=== PATIENT | female | born 1975 | race American Indian/Alaskan Native ===

== ENCOUNTER 2022-02-26 05:40 | Emergency (ER) | payer SELFPAY ==
[2022-02-26 05:51] VITALS: BP 114/68
--- NOTE | 2022-02-26 08:08 | XRay Report ---
CHEST 2 VIEWS INDICATION: Chest Pain. COMPARISON: none FINDINGS: Support devices: None. Heart: Within normal limits. Lungs/pleura: No acute air space or interstitial disease. No pneumothorax. Additional findings: None. IMPRESSION: No acute findings. Signer Name: Dudley Vora Jr, MD Signed: 02/26/2022 8:03 AM Workstation Name: [id number]
[2022-02-26 08:28] LABS: Basophils # (Auto) 0.1 K/mm3 (0.0-0.1); Eosinophils # (Auto) 0.1 K/mm3 (0.0-0.4); Eosinophils % (Auto) 1.5 % (0.0-4.3); Hematocrit 27.3 % (30.3-42.9); Hemoglobin 8.3 gm/dl (10.1-14.3); Lymphocytes # (Auto) 1.3 K/mm3 (1.2-5.4); Lymphocytes % (Auto) 17.7 % (13.4-35.0); Mean Corpuscular HGB Conc 30 % (30-34); Monocytes # (Auto) 0.7 K/mm3 (0.0-0.8); Platelet Count 394 K/mm3 (140-440); Red Blood Count 3.97 M/mm3 (3.65-5.03); Red Cell Distribution Width 17.6 % (13.2-15.2)
[2022-02-26 08:32] LABS: Mean Corpuscular Volume 69 fl (79-97)
[2022-02-26 08:40] LABS: INR 0.91 (0.87-1.13)
[2022-02-26 08:41] LABS: Partial Thromboplastin Time 26.4 Sec. (24.2-36.6)
[2022-02-26 09:18] LABS: Alanine Aminotransferase 8 units/L (7-56); Albumin 4.3 g/dL (3.9-5); Blood Urea Nitrogen 7 mg/dL (7-17); Calcium 8.8 mg/dL (8.4-10.2); Hemolysis Index 10
--- NOTE | 2022-02-26 09:22 | Emergency Department Report ---
- General Chief Complaint: Upper Respiratory Infection Stated Complaint: CHEST PAIN/COUGH Time Seen by Provider: 02/26/22 07:37 Source: EMS Mode of arrival: Stretcher Limitations: No Limitations - History of Present Illness Initial Comments: This is a 46-year-old female nontoxic, well nourished in appearance, no acute signs of distress presents to the ED with c/o of productive cough, chest tightness during coughing episodes only, rhinorrhea, nasal congestion x2 days. Patient describes productive cough as yellow mucus production. Patient denies bee sting contact. Patient denies being COVID vaccinated. Patient denies any recent travels, long car, recent hospital stays. Patient denies any calf pain or calf tenderness. Patient denies any chest pain, short of breath, fever, chills, nausea, vomiting, hemoptysis, numbness, tingling, headache or stiff neck. Patient denies any allergies or significant past medical history. MD Complaint: cough, rhinorrhea, nasal congestion, other (chest thightness) -: days(s) Severity: mild Severity scale (0 -10): 3 Quality: aching Consistency: intermittent Improves With: nothing Context: other (cough) Associated Symptoms: rhinorrhea, nasal congestion, cough. denies: fever, chills, myalgias, diaphoresis, headache, sore throat, stiff neck, chest pain, shortness of breath, abdominal pain, nausea, vomiting, diarrhea, dysuria, rash, confusion, right sweats, weight loss, epistaxis, hoarseness, ear pain Treatments Prior to Arrival: none - Related Data Previous Rx's Medication Instructions Recorded Last Taken Type Benzonatate [Tessalon Perles] 100 mg PO Q8HR PRN #12 cap 02/26/22 Unknown Rx Allergies Allergy/AdvReac Type Severity Reaction Status Date / Time No Known Allergies Allergy Verified 02/26/22 09:29 ED Review of Systems ROS: Stated complaint: CHEST PAIN/COUGH Other details as noted in HPI Comment: All other systems reviewed and negative Constitutional: denies: chills, fever Eyes: denies: eye pain, eye discharge, vision change ENT: congestion. denies: ear pain, throat pain Respiratory: cough. denies: shortness of breath, wheezing Cardiovascular: other (chest tightness). denies: chest pain, palpitations, dyspnea on exertion, orthopnea, edema, syncope, paroxysmal nocturnal dyspnea Endocrine: no symptoms reported Gastrointestinal: denies: abdominal pain, nausea, diarrhea Genitourinary: denies: urgency, dysuria, discharge Musculoskeletal: denies: back pain, joint swelling, arthralgia Skin: denies: rash, lesions Neurological: denies: headache, weakness, paresthesias Psychiatric: denies: anxiety, depression Hematological/Lymphatic: denies: easy bleeding, easy bruising ED Past Medical Hx - Past Medical History Previous Medical History?: No - Surgical History Past Surgical History?: No - Social History Smoking Status: Unknown if ever smoked Substance Use Type: Alcohol - Medications Home Medications: Home Medications Medication Instructions Recorded Confirmed Last Taken Type Benzonatate [Tessalon Perles] 100 mg PO Q8HR PRN #12 cap 02/26/22 Unknown Rx ED Physical Exam - General Limitations: No Limitations General appearance: alert, in no apparent distress - Head Head exam: Present: atraumatic, normocephalic - Eye Eye exam: Present: normal appearance - ENT ENT exam: Present: normal exam, normal orophraynx - Neck Neck exam: Present: normal inspection, full ROM. Absent: lymphadenopathy - Respiratory Respiratory exam: Present: normal lung sounds bilaterally. Absent: respiratory distress, wheezes, rales, rhonchi, stridor, chest wall tenderness, accessory mu scle use, decreased breath sounds, prolonged expiratory - Cardiovascular Cardiovascular Exam: Present: regular rate, normal rhythm, normal heart sounds. Absent: bradycardia, tachycardia, irregular rhythm, systolic murmur, diastolic murmur, rubs, gallop - Extremities Exam Extremities exam: Present: full ROM - Back Exam Back exam: Present: full ROM - Neurological Exam Neurological exam: Present: alert, oriented X3, normal gait - Psychiatric Psychiatric exam: Present: normal affect, normal mood - Skin Skin exam: Present: warm, dry, intact, normal color. Absent: rash ED Course Vital Signs 02/26/22 05:47 Temperature 98.9 F Pulse Rate 96 H Respiratory 18 Rate Blood Pressure 114/68 O2 Sat by Pulse 99 Oximetry - Reevaluation(s) Reevaluation #1: 02/26/22 09:22 Patient is speaking in full sentences with no signs of distress noted. ED Medical Decision Making - Lab Data Result diagrams: 02/26/22 08:17 02/26/22 08:17 Lab Results 02/26/22 02/26/22 02/26/22 Range/Units 08:17 08:17 08:17 WBC 7.4 (4.5-11.0) K/mm3 RBC 3.97 (3.65-5.03) M/mm3 Hgb 8.3 L (10.1-14.3) gm/dl Hct 27.3 L (30.3-42.9) % MCV 69 L (79-97) fl MCH 21 L (28-32) pg MCHC 30 (30-34) % RDW 17.6 H (13.2-15.2) % Plt Count 394 (140-440) K/mm3 Lymph % (Auto) 17.7 (13.4-35.0) % Luna % (Auto) 9.0 H (0.0-7.3) % Eos % (Auto) 1.5 (0.0-4.3) % Baso % (Auto) 1.0 (0.0-1.8) % Lymph # (Auto) 1.3 (1.2-5.4) K/mm3 Luna # (Auto) 0.7 (0.0-0.8) K/mm3 Eos # (Auto) 0.1 (0.0-0.4) K/mm3 Baso # (Auto) 0.1 (0.0-0.1) K/mm3 Seg Neutrophils % 70.8 H (40.0-70.0) % Seg Neutrophils # 5.3 (1.8-7.7) K/mm3 PT 13.2 (12.2-14.9) Sec. INR 0.91 (0.87-1.13) APTT 26.4 (24.2-36.6) Sec. Sodium 138 (137-145) mmol/L Potassium 4.4 (3.6-5.0) mmol/L Chloride 99.8 (98-107) mmol/L Carbon Dioxide 23 (22-30) mmol/L Anion Gap 20 mmol/L BUN 7 (7-17) mg/dL Creatinine 0.7 (0.6-1.2) mg/dL Estimated GFR > 60 ml/min BUN/Creatinine Ratio 10 % Glucose 109 H (65-100) mg/dL Calcium 8.8 (8.4-10.2) mg/dL Total Bilirubin 0.30 (0.1-1.2) mg/dL AST 15 (5-40) units/L ALT 8 (7-56) units/L Alkaline Phosphatase 92 (35-129) units/L Troponin T < 0.010 (0.00-0.029) ng/mL Total Protein 7.4 (6.3-8.2) g/dL Albumin 4.3 (3.9-5) g/dL Albumin/Globulin Ratio 1.4 % HCG, Qual (Negative) 02/26/22 02/26/22 Range/Units 08:17 11:24 WBC (4.5-11.0) K/mm3 RBC (3.65-5.03) M/mm3 Hgb (10.1-14.3) gm/dl Hct (30.3-42.9) % MCV (79-97) fl MCH (28-32) pg MCHC (30-34) % RDW (13.2-15.2) % Plt Count (140-440) K/mm3 Lymph % (Auto) (13.4-35.0) % Luna % (Auto) (0.0-7.3) % Eos % (Auto) (0.0-4.3) % Baso % (Auto) (0.0-1.8) % Lymph # (Auto) (1.2-5.4) K/mm3 Luna # (Auto) (0.0-0.8) K/mm3 Eos # (Auto) (0.0-0.4) K/mm3 Baso # (Auto) (0.0-0.1) K/mm3 Seg Neutrophils % (40.0-70.0) % Seg Neutrophils # (1.8-7.7) K/mm3 PT (12.2-14.9) Sec. INR (0.87-1.13) APTT (24.2-36.6) Sec. Sodium (137-145) mmol/L Potassium (3.6-5.0) mmol/L Chloride (98-107) mmol/L Carbon Dioxide (22-30) mmol/L Anion Gap mmol/L BUN (7-17) mg/dL Creatinine (0.6-1.2) mg/dL Estimated GFR ml/min BUN/Creatinine Ratio % Glucose (65-100) mg/dL Calcium (8.4-10.2) mg/dL Total Bilirubin (0.1-1.2) mg/dL AST (5-40) units/L ALT (7-56) units/L Alkaline Phosphatase (35-129) units/L Troponin T < 0.010 (0.00-0.029) ng/mL Total Protein (6.3-8.2) g/dL Albumin (3.9-5) g/dL Albumin/Globulin Ratio % HCG, Qual Negative (Negative) - EKG Data 02/26/22 12:26 Normal sinus rhythm at [address] or T wave normalities. Reviewed and signed by MD. - Radiology Data [facility] [address] [place] [address] XRay Report Signed Patient: CHRIS JOHNSON MR#: [id number] : 1975 Acct:[id number] Age/Sex: 46 / F ADM Date: 02/26/22 Loc: ED Attending Dr: Ordering Physician: DELILAH JUÁREZ NP Date of Service: 02/26/22 Procedure(s): XR chest routine 2V Accession Number(s): [id number] cc: DELILAH JUÁREZ NP Fluoro Time In Minutes: CHEST 2 VIEWS INDICATION: Chest Pain. COMPARISON: none FINDINGS: Support devices: None. Heart: Within normal limits. Lungs/pleura: No acute air space or interstitial disease. No pneumothorax. Additional findings: None. IMPRESSION: No acute findings. Signer Name: Dudley Vora Jr, MD Signed: 02/26/2022 8:03 AM Workstation Name: [id number] Transcribed By: TTR Dictated By: DUDLEY VORA JR, MD Electronically Authenticated By: DUDLEY VORA JR, MD Signed Date/Time: 02/26/22802 DD/ 2 TD/TT: - Medical Decision Making This is a 46-year-old female that presents with viral bronchitis. Patient is stable and was examined by me. GLEN and HEART score 0 pints. PERC score for DVT/SVT/PE 0 points. Negative d-dimmer. EKG normal sinus rhythm with no significant changes in ST. Labs within normal limits. Negative troponin x2. Chest x-ray has been obtained and dictated by radiologist with normal exam. Patient is notified of x-ray results with no questions noted. Patient does meet clinical concerns of COVID-19 and patient was instructed and educated on signs and symptoms and to self quarantine and seek medical attention as soon as possible if symptoms does occur. Patient was instructed to increase hydration, rest and take Motrin for fever episodes. Patient received motrin and tesslone perrls in the ED. Vitals stable. Patient is nonfebrile and normal heart rate. Patient was instructed Follow-up with a primary care and manager delivery doctor in 2 days or if symptoms worsen and continue return to emergency room as soon as possible. At time time of discharge, the patient does not seem toxic or ill in appearance. No acute signs of distress noted. Patient agrees to discharge treatment plan of care. No further questions noted by the patient. Critical care attestation.: If time is entered above; I have spent that time in minutes in the direct care of this critically ill patient, excluding procedure time. ED Disposition Clinical Impression: Viral bronchitis, Suspected COVID-19 virus infection Chest pain, unspecified Qualifiers: Chest pain type: unspecified Qualified Code(s): R07.9 - Chest pain, unspecified Disposition: 01 HOME / SELF CARE / HOMELESS Is pt being admited?: No Does the pt Need Aspirin: No Condition: Stable Instructions: Nonspecific Chest Pain, Adult, Acute Bronchitis, Adult, [id number]-Hush, Chronic Bronchitis (ED) Additional Instructions: Follow-up with a primary care and manager delivery doctor in 2 days or if symptoms worsen and continue return to emergency room as soon as possible. Your symptoms appear most consistent with a nonspecific viral syndrome and possibly COVID. Given this current pandemic, COVID-19 is in the differential of possibilities. Despite your previous negative COVID-19 test, I do recommend repeat outpatient Covid 19 testing. In the meantime, isolate/quarantine yourself and stay away from anyone who is elderly, immunocompromised or chronically ill. Please see your nearest health department or primary care doctor that you are referred to for COVID testing. Increased rest, hydration, and take [id number] Tylenol as directed from instructions label for pain/fever episode. Prescriptions: Benzonatate [Tessalon Perles] 100 mg PO Q8HR PRN #12 cap PRN Reason: Cough Referrals: BUTLER,KUCHELA, MD [Staff Physician] - 2-3 Days MELISA MAGUIRE MD [Staff Physician] - 2-3 Days PRIMARY CAREMD [Referring] - 2-3 Days Time of Disposition: 12:15
[2022-02-26 09:36] LABS: BUN/Creatinine Ratio 10
[2022-02-26] MEDS ORDERED: BENZONATATE 100 MG CAP PO SCH (10:00)
--- NOTE | 2022-02-26 10:50 | Electrocardiograph Report ---
[facility] Test Date: 2022-02-26 Test Time: 10:01:33 Pat Name: CHRIS JOHNSON Department: Room: Gender: F Clinical Rehabilitation Specialist: TAI : 1975 Requested By: DELILAH JUÁREZ Order Number: [id number] Reading MD: Ronaldo Abdalla Measurements Intervals [place] Rate: 80 P: 28 TX: 164 QRS: 246 QRSD: 84 T: 36 QT: 393 QTc: 454 Interpretive Statements Sinus rhythm Inferior infarct, old No previous ECG available for comparison Electronically Signed On 02-26-2022 10:50:09 EDT by Ronaldo Abdalla
== END 2022-02-26 12:43 | disposition home or self-care (01) ==
LOC: ED 05:40
DX: J20.8 Acute bronchitis due to other specified organisms (principal); R07.9 Chest pain, unspecified; Z20.822 Contact with and (suspected) exposure to COVID-19
CPT/HCPCS: 36415; 71046; 80053; 84484; 84703; 85025; 85610; 85730; 93005; 99284

== ENCOUNTER 2022-03-19 02:18 | Emergency (ER) | payer SELFPAY ==
[2022-03-19] MEDS ORDERED: ASPIRIN 325 MG TAB PO ONE (02:42)
[2022-03-19] MEDS ORDERED: SODIUM CHLORIDE 0.9% 1000 ML 1,000 ML IV ONE (02:42)
[2022-03-19] MEDS ORDERED: ONDANSETRON 4 MG/2 ML INJ IV ONE (02:43)
[2022-03-19] MEDS ORDERED: MORPHINE 4 MG/1 ML INJ IV ONE (02:43)
[2022-03-19 03:13] LABS: Basophils # (Auto) 0.1 K/mm3 (0.0-0.1); Eosinophils # (Auto) 0.1 K/mm3 (0.0-0.4); Eosinophils % (Auto) 1.2 % (0.0-4.3); Hematocrit 26.2 % (30.3-42.9); Hemoglobin 7.9 gm/dl (10.1-14.3); Lymphocytes # (Auto) 1.7 K/mm3 (1.2-5.4); Lymphocytes % (Auto) 17.5 % (13.4-35.0); Mean Corpuscular HGB Conc 30 % (30-34); Monocytes # (Auto) 0.7 K/mm3 (0.0-0.8); Monocytes % (Auto) 6.8 % (0.0-7.3); Platelet Count 418 K/mm3 (140-440); Red Blood Count 3.89 M/mm3 (3.65-5.03); Red Cell Distribution Width 17.5 % (13.2-15.2)
[2022-03-19 03:17] LABS: Mean Corpuscular Volume 67 fl (79-97)
[2022-03-19 03:23] LABS: INR 0.87 (0.87-1.13)
--- NOTE | 2022-03-19 03:26 | XRay Report ---
CHEST 1 VIEW INDICATION / CLINICAL INFORMATION: Chest Pain STUDY TIME: 248 COMPARISON: 02/26/2022 FINDINGS: SUPPORT DEVICES: None HEART / MEDIASTINUM: No significant abnormality. LUNGS / PLEURA: Poor degree of inspiration is seen. Considering this, no focal infiltrates are noted. No pleural effusions are seen. No pneumothorax. ADDITIONAL FINDINGS: No significant additional findings. Signer Name: Manish Davis MD Signed: 03/19/2022 3:21 AM Workstation Name: [id number]
[2022-03-19 03:29] LABS: Alanine Aminotransferase 7 units/L (7-56); Albumin 3.9 g/dL (3.9-5); Blood Urea Nitrogen 7 mg/dL (7-17); Hemolysis Index 0
[2022-03-19 03:31] LABS: BUN/Creatinine Ratio 10
--- NOTE | 2022-03-19 04:02 | Emergency Department Report ---
ED General Adult HPI - General Stated complaint: CHEST PAIN Time Seen by Provider: 03/19/22 02:28 Source: patient Mode of arrival: Ambulatory Limitations: No Limitations - History of Present Illness Initial comments: cough congestion and chest pain , has been seen here few days ago and work up was negative -: Gradual, days(s) Location: chest Severity scale (0 -10): 0 Consistency: intermittent Improves with: none Worsens with: none Associated Symptoms: chest pain, cough. denies: denies other symptoms, confusion - Related Data Previous Rx's Medication Instructions Recorded Last Taken Type Benzonatate [Tessalon Perles] 100 mg PO Q8HR PRN #12 cap 02/26/22 Unknown Rx Albuterol Mdi (or & Nicu Only) 2 puff IH QID PRN #8.5 gram 03/19/22 Unknown Rx [ProAir HFA Inhaler] Azithromycin [Zithromax Z-RADHA] 250 mg PO DAILY #6 03/19/22 Unknown Rx Brompheniramine/Pseudoephed/Dm 5 ml PO Q6HR PRN #120 syrup 03/19/22 Unknown Rx [Bromfed Dm Cough Syrup] Allergies Allergy/AdvReac Type Severity Reaction Status Date / Time No Known Allergies Allergy Verified 02/26/22 09:29 ED Review of Systems ROS: Stated complaint: CHEST PAIN Other details as noted in HPI Constitutional: denies: chills, fever Eyes: denies: eye pain, eye discharge, vision change ENT: denies: ear pain, throat pain Respiratory: denies: cough, shortness of breath, wheezing Cardiovascular: denies: chest pain, palpitations Endocrine: no symptoms reported Gastrointestinal: denies: abdominal pain, nausea, diarrhea Genitourinary: denies: urgency, dysuria, discharge Musculoskeletal: denies: back pain, joint swelling, arthralgia Skin: denies: rash, lesions Neurological: denies: headache, weakness, paresthesias Psychiatric: denies: anxiety, depression Hematological/Lymphatic: denies: easy bleeding, easy bruising ED Past Medical Hx - Past Medical History Previous Medical History?: No Hx Hypertension: No - Social History Smoking Status: Unknown if ever smoked Substance Use Type: Alcohol - Medications Home Medications: Home Medications Medication Instructions Recorded Confirmed Last Taken Type Benzonatate [Tessalon Perles] 100 mg PO Q8HR PRN #12 cap 02/26/22 Unknown Rx Albuterol Mdi (or & Nicu Only) 2 puff IH QID PRN #8.5 gram 03/19/22 Unknown Rx [ProAir HFA Inhaler] Azithromycin [Zithromax Z-RADHA] 250 mg PO DAILY #6 03/19/22 Unknown Rx Brompheniramine/Pseudoephed/Dm 5 ml PO Q6HR PRN #120 syrup 03/19/22 Unknown Rx [Bromfed Dm Cough Syrup] ED Physical Exam - General General appearance: alert, in no apparent distress - Head Head exam: Present: atraumatic, normocephalic - Eye Eye exam: Present: normal appearance - ENT ENT exam: Present: mucous membranes moist - Neck Neck exam: Present: normal inspection - Respiratory Respiratory exam: Present: normal lung sounds bilaterally. Absent: respiratory distress - Cardiovascular Cardiovascular Exam: Present: regular rate, normal rhythm. Absent: systolic murmur, diastolic murmur, rubs, gallop - GI/Abdominal GI/Abdominal exam: Present: soft, normal bowel sounds - Extremities Exam Extremities exam: Present: normal inspection - Back Exam Back exam: Present: normal inspection - Neurological Exam Neurological exam: Present: alert, oriented X3 - Psychiatric Psychiatric exam: Present: normal affect, normal mood - Skin Skin exam: Present: warm, dry, intact, normal color. Absent: rash ED Medical Decision Making - Lab Data Result diagrams: 03/19/22 02:58 03/19/22 02:58 - EKG Data -: EKG Interpreted by Ny EKG shows normal: sinus rhythm - EKG Data Interpretation: nonspecific ST-T wave rayo - Radiology Data Radiology results: report reviewed, image reviewed - Medical Decision Making work up showed negative tro x ray clear , has been treated recently for URI Critical care attestation.: If time is entered above; I have spent that time in minutes in the direct care of this critically ill patient, excluding procedure time. ED Disposition Clinical Impression: Chest pain, Bronchitis Disposition: HOME / SELF CARE / HOMELESS Is pt being admited?: No Does the pt Need Aspirin: No Condition: Stable Instructions: Nonspecific Chest Pain, Adult, Chronic Bronchitis (ED), How to Use a Metered Dose Inhaler Referrals: PRIMARY CARE, [Primary Care Provider] - 3-5 Days
== END 2022-03-19 05:25 | disposition home or self-care (01) ==
LOC: ED 02:18
DX: R07.9 Chest pain, unspecified (principal); J40 Bronchitis, not specified as acute or chronic; F10.20 Alcohol dependence, uncomplicated
CPT/HCPCS: 36415; 71045; 80053; 83690; 84484; 85025; 85610; 93005; 96361; 96374; 99284; J2405; J7030; J2270

== ENCOUNTER 2022-05-04 02:05 | Emergency (ER) | payer SELFPAY ==
[2022-05-04] MEDS ORDERED: predniSONE 20 MG TAB PO ONE (08:03)
[2022-05-04] MEDS ORDERED: KETOROLAC 10 MG TAB PO ONE (08:03)
[2022-05-04] MEDS ORDERED: ACETAMINOPHEN W/CODEINE 300-30 MG TAB PO ONE (08:03)
--- NOTE | 2022-05-04 09:01 | Emergency Department Report ---
ED ENT HPI - General Chief complaint: Dyspnea/Respdistress Stated complaint: SORE THROAT/ALBINO Time Seen by Provider: 05/04/22 07:41 Source: patient Mode of arrival: Wheelchair Limitations: No Limitations - History of Present Illness Initial comments: 46-year-old black female with a past medical history of asthma presents to the emergency department for evaluation of 5-day history of worsening sore throat and tonsillar swelling. She denies fever, headache and abdominal pain. She states pain is 8 out of 10 and unrelieved by Tylenol and ibuprofen. MD complaint: sore throat -: Gradual, days(s) (5) Location: throat Severity: severe Severity scale (0 -10): 10 Quality: aching Consistency: constant Worsens with: swallowing Associated Symptoms: pain with swallowing, sore throat. denies: fever, cough, gum swelling, toothache, tinnitus, hearing loss, discharge from ear, rhinorrhea - Related Data Previous Rx's Medication Instructions Recorded Last Taken Type Benzonatate [Tessalon Perles] 100 mg PO Q8HR PRN #12 cap 02/26/22 Unknown Rx Albuterol Mdi (or & Nicu Only) 2 puff IH QID PRN #8.5 gram 03/19/22 Unknown Rx [ProAir HFA Inhaler] Azithromycin [Zithromax Z-RADHA] 250 mg PO DAILY #6 03/19/22 Unknown Rx Brompheniramine/Pseudoephed/Dm 5 ml PO Q6HR PRN #120 syrup 03/19/22 Unknown Rx [Bromfed Dm Cough Syrup] Clindamycin [Clindamycin CAP] 300 mg PO Q8H 10 Days #30 cap 05/04/22 Unknown Rx Nystas/Diphen/Xyl Visc/Mylanta 30 ml MM Q4H PRN #120 ml 05/04/22 Unknown Rx [Magic Mouthwash] Allergies Allergy/AdvReac Type Severity Reaction Status Date / Time No Known Allergies Allergy Verified 02/26/22 09:29 ED Dental HPI - General Chief complaint: Dyspnea/Respdistress Stated complaint: SORE THROAT/ALBINO Time Seen by Provider: 05/04/22 07:41 Source: patient Mode of arrival: Wheelchair Limitations: No Limitations - Related Data Previous Rx's Medication Instructions Recorded Last Taken Type Benzonatate [Tessalon Perles] 100 mg PO Q8HR PRN #12 cap 02/26/22 Unknown Rx Albuterol Mdi (or & Nicu Only) 2 puff IH QID PRN #8.5 gram 03/19/22 Unknown Rx [ProAir HFA Inhaler] Azithromycin [Zithromax Z-RADHA] 250 mg PO DAILY #6 03/19/22 Unknown Rx Brompheniramine/Pseudoephed/Dm 5 ml PO Q6HR PRN #120 syrup 03/19/22 Unknown Rx [Bromfed Dm Cough Syrup] Clindamycin [Clindamycin CAP] 300 mg PO Q8H 10 Days #30 cap 05/04/22 Unknown Rx Nystas/Diphen/Xyl Visc/Mylanta 30 ml MM Q4H PRN #120 ml 05/04/22 Unknown Rx [Magic Mouthwash] Allergies Allergy/AdvReac Type Severity Reaction Status Date / Time No Known Allergies Allergy Verified 02/26/22 09:29 ED Review of Systems ROS: Stated complaint: SORE THROAT/ALBINO Other details as noted in HPI Comment: All other systems reviewed and negative Constitutional: malaise, weakness. denies: chills, fever Eyes: denies: eye discharge, vision change ENT: throat pain. denies: ear pain, dental pain, congestion Respiratory: denies: shortness of breath, SOB with exertion Cardiovascular: denies: chest pain, palpitations Gastrointestinal: denies: abdominal pain, nausea, vomiting Genitourinary: denies: urgency, dysuria Musculoskeletal: denies: back pain Skin: denies: rash, lesions Neurological: denies: headache, weakness ED Past Medical Hx - Past Medical History Hx Hypertension: No Hx Asthma: Yes - Surgical History Past Surgical History?: Yes Hx Cholecystectomy: Yes - Social History Smoking Status: Never Smoker Substance Use Type: None - Medications Home Medications: Home Medications Medication Instructions Recorded Confirmed Last Taken Type Benzonatate [Tessalon Perles] 100 mg PO Q8HR PRN #12 cap 02/26/22 Unknown Rx Albuterol Mdi (or & Nicu Only) 2 puff IH QID PRN #8.5 gram 03/19/22 Unknown Rx [ProAir HFA Inhaler] Azithromycin [Zithromax Z-RADHA] 250 mg PO DAILY #6 03/19/22 Unknown Rx Brompheniramine/Pseudoephed/Dm 5 ml PO Q6HR PRN #120 syrup 03/19/22 Unknown Rx [Bromfed Dm Cough Syrup] Clindamycin [Clindamycin CAP] 300 mg PO Q8H 10 Days #30 cap 05/04/22 Unknown Rx Nystas/Diphen/Xyl Visc/Mylanta 30 ml MM Q4H PRN #120 ml 05/04/22 Unknown Rx [Magic Mouthwash] ED Physical Exam - General Limitations: No Limitations General appearance: alert, in no apparent distress - Head Head exam: Present: atraumatic, normocephalic - Eye Eye exam: Present: normal appearance. Absent: scleral icterus, conjunctival injection, periorbital swelling, periorbital tenderness - Expanded ENT Exam Expanded Throat exam: Positive: tonsillar erythema, tonsillomegaly, tonsillar exudate. Negative: R peritonsillar mass, L peritonsillar mass - Neck Neck exam: Present: normal inspection, tenderness, lymphadenopathy (Anterior cervical) - Respiratory Respiratory exam: Present: normal lung sounds bilaterally. Absent: respiratory distress, wheezes, rales, rhonchi, stridor, chest wall tenderness - Cardiovascular Cardiovascular Exam: Present: regular rate, normal heart sounds - GI/Abdominal GI/Abdominal exam: Present: soft, normal bowel sounds. Absent: distended, tenderness, rebound, rigid - Extremities Exam Extremities exam: Present: normal inspection, normal capillary refill - Back Exam Back exam: Present: normal inspection - Neurological Exam Neurological exam: Present: alert, oriented X3, normal gait - Psychiatric Psychiatric exam: Present: normal affect, normal mood - Skin Skin exam: Present: warm, dry, intact, normal color ED Course Vital Signs 05/04/22 05:01 Temperature 98.6 F Pulse Rate 76 Respiratory 16 Rate Blood Pressure 138/70 O2 Sat by Pulse 97 Oximetry ED Medical Decision Making - Medical Decision Making 46-year-old black female with a past medical history of asthma presents to the emergency department for evaluation of 5-day history of worsening sore throat and tonsillar swelling. She denies fever, headache and abdominal pain. She states pain is 8 out of 10 and unrelieved by Tylenol and ibuprofen. Rapid strep positive. Patient treated with one-time dose of prednisone, Toradol, and Tylenol 3 while in the emergency department. Patient declined IM Bicillin stating that it does not usually work for her, so she will be dis charged home with 10-day course of clindamycin along with Magic mouthwash to use as directed. She is advised to follow-up with her primary care provider if no improvement or worsening symptoms or return to the emergency department as needed. She verbalizes understanding of and agreement with plan of care. Critical care attestation.: If time is entered above; I have spent that time in minutes in the direct care of this critically ill patient, excluding procedure time. ED Disposition Clinical Impression: Strep pharyngitis Disposition: 01 HOME / SELF CARE / HOMELESS Is pt being admited?: No Does the pt Need Aspirin: No Condition: Stable Instructions: Strep Throat, Adult, [id number] Additional Instructions: Take medications as prescribed. Follow-up with primary care provider if no improvement or worsening symptoms. Return to the emergency department as needed. Prescriptions: Clindamycin [Clindamycin CAP] 300 mg PO Q8H 10 Days #30 cap Nystas/Diphen/Xyl Visc/Mylanta [Magic Mouthwash] 30 ml MM Q4H PRN #120 ml PRN Reason: Sore Throat Referrals: MELISA MAGUIRE MD [Staff Physician] - 3-5 Days Forms: Work/School Release Form(ED) Time of Disposition: 09:04
[2022-05-04 09:19] VITALS: BP 136/70
== END 2022-05-04 09:20 | disposition home or self-care (01) ==
LOC: ED 02:05
DX: J02.0 Streptococcal pharyngitis (principal); J45.909 Unspecified asthma, uncomplicated; Z98.890 Other specified postprocedural states
CPT/HCPCS: 87430; 99284

== ENCOUNTER 2022-05-05 08:50 | Emergency (ER) | payer SELFPAY ==
[2022-05-05 08:55] VITALS: BP 136/66
== END 2022-05-05 19:30 | disposition left against medical advice (07) ==
LOC: ED 08:50
DX: R05.9 Cough, unspecified (principal); Z53.21 Procedure and treatment not carried out due to patient leaving prior to being seen by health care provider